=== PATIENT | male | born 1995 | race Caucasian/White ===

== ENCOUNTER 2016-05-11 22:24 | Emergency (ER) | payer BC ==
[2016-05-11 22:43] VITALS: PULSE 85; RESP 16; TEMP 98.6; O2SAT 96
[2016-05-11] MEDS ORDERED: IBUPROFEN 600 MG TAB PO ONE (22:54)
[2016-05-11] MEDS ORDERED: TDAP ADULT 0.5 ML INJ (BOOSTRIX) IM ONE (22:55)
--- NOTE | 2016-05-11 23:40 | EDPHY ---
H & P Time Seen by Provider: 05/11/16 22:55 HPI/ROS: CHIEF COMPLAINT: Laceration left hand HISTORY OF PRESENT ILLNESS: 20-year-old male presents to the emergency department with a laceration to his left hand. The patient was at home and was removing the pit of an avocado with a knife and the knife slipped and he punctured his left hand. The incident happened just prior to arrival. He denies numbness or tingling in his fingers or any other injury. He believes his tetanus shot is current. He is right-hand dominant. ROS: Denies numbness or tingling in his fingers, retained foreign body. Past Medical/Surgical History: Negative Social History: [employer] student from [place] Smoking Status: Never smoked Physical Exam: On examination the patient has a 1 cm laceration to the palmar aspect of the left hand to the base of the left 2nd finger. He has full range of motion of his finger. He has no evidence of tendon injury. Normal sensation to light touch with normal 2 point discrimination. The other fingers appear uninjured. Constitutional: Initial Vital Signs Temperature (C) 37.0 C 05/11/16 22:39 Heart Rate 85 05/11/16 22:39 Respiratory Rate 16 05/11/16 22:39 O2 Sat (%) 96 05/11/16 22:39 O2 Delivery Mode Room Air Allergies/Adverse Reactions: No Known Allergies Allergy (Unverified 05/11/16 22:42) Home Medications: Medication Instructions Recorded Bupropion HCl 05/11/16 Lorazepam 05/11/16 MDM/Departure - MDM Procedures: Laceration repair. Verbal consent was obtained from the patient. The 1 cm laceration on the palmar aspect base of left 2nd finger was anesthetized using 1% lidocaine with epinephrine. The wound was irrigated with saline, draped and explored to its base with a gloved finger. There were no deep structures involved. No tendon injury was identified. The wound was repaired with 5 0 Ethilon, 2 sutures. The wound repair was simple. The procedure was performed by myself. Medications Given: Discontinued Medications Ibuprofen (Motrin) 600 mg PO EDNOW ONE Stop: 05/11/16 22:55 Last Admin: 05/11/16 22:59 Dose: 600 mg ED Course/Re-evaluation: 20-year-old male presents to the emergency department with a laceration to his left hand. The wound was repaired, see procedure note. The patient's tetanus shot is current. He was given wound care precautions. - Depart Disposition: Home, Routine, Self-Care Clinical Impression: Laceration of left hand Qualifiers: Encounter type: initial encounter Qualified Code(s): S61.412A - Laceration without foreign body of left hand, initial encounter Condition: Good Instructions: Care For Your Stitches (ED), Laceration (ED), Acute Wounds (ED) Additional Instructions: Wound Care Follow-Up: Removal of sutures in 10 days. Suture removal is complimentary in uncomplicated cases. Infection or abnormal findings would require reevaluation by the MD. In that case, you may be billed. Return if you notice any signs or symptoms of infection such as redness, swelling, increased pain, fever, purulent drainage. Referrals: JUAN J SMITH [Primary Care Provider] - As per Instructions
== END 2016-05-11 23:51 | disposition home or self-care (01) ==
LOC: EDSEX 22:24
PROC: 0HQGXZZ Repair Left Hand Skin, External Approach (ICD-10-PCS; principal; 2016-05-11)
DX: S61.412A Laceration without foreign body of left hand, initial encounter (principal); W26.0XXA Contact with knife, initial encounter; Y92.009 Unspecified place in unspecified non-institutional (private) residence as the place of occurrence of the external cause; Y93.89 Activity, other specified